=== PATIENT | female | born 1980 | race Caucasian/White ===

== ENCOUNTER → 2017-10-30 | Outpatient (CLI) | payer OTHER ==
[~2017-10-30] MED LIST: NITR-5 PO; ONDA4TAB46 PO; OPTIRAY 320 IV PRN; [UNRECOGNIZED DRUG - OTHER]
--- NOTE | 2017-10-30 12:30 | DIAGNOSTIC IMAGING REPORT ---
ABD/PELVIS IV AND ORAL CONT CLINICAL HISTORY: 37 years-old Female presenting with R10.9 Flank pain, acute, only one kidney. TECHNIQUE: Multidetector CT of the abdomen and pelvis was performed after the administration of oral and intravenous contrast. IV contrast: 70 mL of Optiray 320. A dose lowering technique was used consistent with the principles of ALARA (as low as reasonably achievable). COMPARISON: Plain radiograph from 10/13/2017. CT DOSE (mGy.cm): The estimated cumulative dose is 370.56 mGycm. FINDINGS: Audiologist topogram: Unremarkable. Lung bases: Lungs and pleural spaces clear. Normal heart size. No pericardial or pleural effusion. Liver: Normal morphology. No liver lesion. Patent hepatic vasculature. Biliary: No intrahepatic or extrahepatic biliary ductal dilatation. Normal gallbladder. Pancreas: Normal. Spleen: Normal. Adrenal glands: Normal. Kidneys and ureters: Hypertrophy of the right kidney, likely sequela of the absence of the left kidney, which appears congenital grade no nephrolithiasis. Mild pelvocaliectasis. The right ureter is mildly dilated. No ureteral calculus. Bladder: Normal. Pelvic organs: Both ovaries are present. 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 The uterine horns, last in the region of the lower uterine segment/cervix. The vagina and cervix are incompletely evaluated on CT. Bowel: Normal appendix. No bowel obstruction. Peritoneal cavity: No free fluid or intraperitoneal gas. Lymph nodes: No enlarged lymph nodes in the abdomen or pelvis. Vasculature: Aorta and IVC patent and normal in caliber. Abdominal wall: Normal. Musculoskeletal: Normal. IMPRESSION: 1. No evidence of nephrolithiasis or ureteral calculus. Mild dilatation of the right renal collecting system and right ureter. Hydronephrosis is difficult to exclude, however, there is no obstructing calculus or mass. Although no bladder wall thickening and no periureteral inflammatory changes are evident, correlation with urinalysis to exclude infectious cystitis. Differential considerations for this appearance include chronic reflux. 2. Congenitally absent left kidney. 3. 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 The distinction localizer on better delineation of the endometrial cavity and cervix, which cannot be assessed on the CT scan. Differentiation between these entities could be performed with noncontrast MR of the pelvis tailored to evaluate the uterus with endovaginal gel. Evaluation for a potential vaginal septum is also limited on CT. 4. Both ovaries are present and normal-appearing. Electronically signed by: Arvin Schreiber M.D. 10/30/2017 12:29 PM Dictated Date/Time: 10/30/2017 12:15 PM
== END | disposition home or self-care (01) ==
LOC: C.CTS 11:51
PROVIDERS: ATTEND Physician Assistant Medical
DX: R10.9 Unspecified abdominal pain (principal); Q60.0 Renal agenesis, unilateral

== ENCOUNTER → 2017-12-02 | Outpatient (CLI) | payer OTHER ==
[~2017-12-02] MED LIST changes: -OPTIRAY 320 IV PRN
== END | disposition home or self-care (01) ==
LOC: C.PATHSPEC 17:20
PROVIDERS: ATTEND Urology
DX: Q60.0 Renal agenesis, unilateral (principal)

== ENCOUNTER → 2017-12-08 | Outpatient (CLI) | payer OTHER ==
[2017-12-08 10:44] LABS: ALBUMIN 4.3 gm/dl (3.4-5.0); ALT/SGPT 53 U/L (12-78); AST/SGOT 28 U/L (15-37); BLOOD UREA NITROGEN 15 mg/dl (7-18); CALCIUM 9.3 mg/dl (8.5-10.1); CARBON DIOXIDE 29 mmol/L (21-32); CREATININE 0.87 mg/dl (0.60-1.20); GLUCOSE 78 mg/dl (70-99); POTASSIUM 3.6 mmol/L (3.5-5.1); SODIUM 139 mmol/L (136-145)
[2017-12-08 10:47] LABS: ALKALINE PHOSPHATASE 38 U/L (45-117); TOTAL PROTEIN 8.3 gm/dl (6.4-8.2)
== END | disposition home or self-care (01) ==
LOC: C.LAB 09:35
PROVIDERS: ATTEND Urology
DX: Q60.0 Renal agenesis, unilateral (principal)

== ENCOUNTER → 2017-12-17 | Outpatient (CLI) | payer OTHER ==
[~2017-12-17] MED LIST changes: +CEPH500C2 PO; +CIPR-255 PO; +OXYC-57 PO; +PHEN-775 PO
[2017-12-17 10:11] LABS: BASO % 0.7 %; BASO ABS # 0.04 K/uL (0-0.2); EOS % 2.5 %; EOS ABS # 0.14 K/uL (0-0.5); HEMATOCRIT 41.3 % (37-47); HEMOGLOBIN 14.2 g/dL (12.0-16.0); LYMPH % 32.4 %; LYMPH ABS # 1.79 K/uL (1.2-3.4); MEAN CELL VOLUME 94.3 fL (80-100); MEAN CORPUSCULAR HEMOGLOBIN 32.4 pg (25-34); MEAN CORPUSCULAR HGB CONC 34.4 g/dl (32-36); MEAN PLATELET VOLUME 9.2 fL (7.4-10.4); MONO % 9.6 %; MONO ABS # 0.53 K/uL (0.11-0.59); NEUT % 54.8 %; NEUT ABS # 3.02 K/uL (1.4-6.5); PLATELET COUNT 267 K/uL (130-400); RED CELL DISTRIBUTION WIDTH CV 12.7 % (11.5-14.5); RED CELL DISTRIBUTION WIDTH SD 43.4 fL (36.4-46.3); WHITE BLOOD COUNT 5.52 K/uL (4.8-10.8)
--- NOTE | 2017-12-17 10:16 | DIAGNOSTIC IMAGING REPORT ---
CHEST 2 VIEWS ROUTINE CLINICAL HISTORY: Congenital absence of one kidney. Left sided chest pain. COMPARISON STUDY: Chest radiograph January 26, 2008. FINDINGS: Lung volumes are normal. There is no pneumothorax or pleural effusion. Lungs are clear. Cardiac size is normal. Mediastinal contours are normal. There is no evidence for pulmonary edema. There is slight rightward curvature of the lower thoracic spine. IMPRESSION: No acute cardiopulmonary findings. Electronically signed by: Evelio Hernandez M.D. 12/17/2017 10:14 AM Dictated Date/Time: 12/17/2017 10:13 AM
== END | disposition home or self-care (01) ==
LOC: C.CPL 09:16
PROVIDERS: ATTEND Urology
DX: Q60.0 Renal agenesis, unilateral (principal)

== ENCOUNTER 2017-12-24 09:47 | Day surgery (SDC) | payer OTHER ==
[2017-12-17 14:43] VITALS: Ht 157.5 cm; Wt 54.5 kg
[~2017-12-24] VITALS: Ht 157.5 cm; Wt 54.5 kg
[~2017-12-24 09:47] MED LIST changes: -CEPH500C2 PO; -CIPR-255 PO; +LACTATED RINGER'S 1000ML 1,000 ML IV SCH; +MISSING PHYSICIAN SIGNATURE ON ORDER SCH; -NITR-5 PO; -ONDA4TAB46 PO; -OXYC-57 PO; -PHEN-775 PO; -[UNRECOGNIZED DRUG - OTHER]
[2017-12-24 10:04] VITALS: PULSE 78; TEMP 36.8; O2SAT 97
[2017-12-24] MEDS ORDERED: CIPROFLOXACIN 400MG / 200ML D5W ONE (10:27)
[2017-12-24] MEDS ORDERED: FENTANYL CITRATE INJ 50 MCG/1 ML 2 ML VIAL ONE (10:43)
[2017-12-24] MEDS ORDERED: MIDAZOLAM HCL 1 MG/ML 2ML VIAL ONE (10:43)
[2017-12-24] MEDS ORDERED: Cysto-Conray II 17.2% 250ML BOTTLE ONE (11:05)
--- NOTE | 2017-12-24 13:07 | History & Physical Bridge Note ---
H&P Re-Evaluation Bridge Note: I have examined the patient, reviewed the History & Physical and in the interval since the performance of the History & Physical I have noted the following changes of clinical significance: No changes noted
--- NOTE | 2017-12-24 13:12 | Discharge Instructions ---
Discharge Instructions Date of Service Dec 24, 2017. Admission Reason for Admission: Blood In Urine (Hematuria) Discharge Discharge Diagnosis / Problem: Hematuria, [place] Discharge Goals Goal(s): Decrease discomfort, Improve function Activity Recommendations Activity Limitations: resume your previous activity Lifting Limitations: gradually increase as tolerated Exercise/Sports Limitations: gradually increase as tolerated . Instructions / Follow-Up Instructions / Follow-Up May have blood in urine or flank pain Call if any fevers or chills. Current Hospital Diet Patient's current hospital diet: Discharge Diet Recommended Diet: Regular Diet Procedures Procedures Performed: Cystoscopy, Right URS, Stent Pending Studies Studies pending at discharge: no Medical Emergencies . Who to Call and When: Medical Emergencies: If at any time you feel your situation is an emergency, please call 911 immediately. . Non-Emergent Contact Non-Emergency issues call your: Primary Care Provider, Urologist Call Non-Emergent contact if: you have a fever, temperature is above 101, temperature is above 101.5, your pain is not controlled, your pain is worsening , your pain is unusual for you . . "Provider Documentation" section prepared by Isaac Thompson. .
[2017-12-24] MEDS ORDERED: OXYC-57 PO (13:13)
[2017-12-24] MEDS ORDERED: PHEN-775 PO (13:13)
[2017-12-24] MEDS ORDERED: CIPR-255 PO (13:13)
[2017-12-24] MEDS ORDERED: OXYCODONE/ACETAMINOPHEN 7.5-325 TAB PO PRN (13:15)
[2017-12-24] MEDS ORDERED: ATROPINE SULFATE 0.1 MG/ML 5ML SYR IV PRN (13:15)
[2017-12-24] MEDS ORDERED: PROMETHAZINE HCL INJ 6.25 MG in SODIUM CHLORIDE 0.9% 50ML 50 ML IV PRN (13:15)
[2017-12-24] MEDS ORDERED: ONDANSETRON INJ 2 MG/ML 2 ML VIAL IV PRN (13:15)
[2017-12-24] MEDS ORDERED: EpHEDrine SULFATE INJ 50 MG/ML AMP IV PRN (13:15)
[2017-12-24] MEDS ORDERED: FENTANYL CITRATE INJ 50 MCG/1 ML 2 ML VIAL IV PRN (13:15)
[2017-12-24] MEDS ORDERED: DEXAMETHASONE SOD INJ 4 MG/ML VIAL ONE (13:33)
[2017-12-24] MEDS ORDERED: ONDANSETRON INJ 2 MG/ML 2 ML VIAL ONE (13:33)
[2017-12-24] MEDS ORDERED: PROPOFOL IV EMULSION 10 MG/ML 20 ML VIAL IV ONE (13:33)
[2017-12-24] MEDS ORDERED: CEPH500C2 PO (13:45)
[2017-12-24] MEDS ORDERED: EpHEDrine SULFATE INJ 50 MG/ML AMP ONE (13:45)
--- NOTE | 2017-12-24 13:45 | [facility] Operative Report ---
Operative Report Operative Date Dec 24, 2017. Pre-Operative Diagnosis Hematuria, Hydronephrosis Right, SOlitary kidney Post-Operative Diagnosis Same Procedure(s) Performed Cystoscopy, Right Ureteroscopy, Retrograde pyelogram, Stent Surgeon Jay Estimated Blood Loss Minimal Findings Tightness at UO. Dilated by scope and stent Specimens None Drains 6 Fr Multilength Anesthesia Type General Complication(s) none Disposition Recovery Room / PACU Indications Imaging found abnormality of right ureter. Risks and benefits discussed. Description of Procedure Patient was consented and brought back to the operating room. Patient was placed under anesthesia in the supine position and moved to the dorsal lithotomy position. Patient was prepped and draped in the regular sterile fashion. A time out was completed. A 30degree Cystoscope was placed into the bladder and the entire bladder was examined. The UO's were identified. The Right was cannulized with a catheter and a retrograde pyelogram was completed. A wire was then placed, a second wire was placed, and a flexible scope was placed into the ureter and renal pelvis. The entire pelvis and ureter were examined. No masses lesions or other areas of concerns were found. The scope was slowly removed visualizing the entire ureter. With the wire in place, a 6 Fr Double J stent was placed. It was confirmed with fluoroscopy. With the stent in place, the bladder was emptied. The scope was removed. The patient was cleaned, aroused from anesthesia, and transferred to the pacu in stable condition having tolerated the procedure well with no complications. I was present and participated in all aspects of the procedure. The patient will be monitored in the PACU until transferred. I attest to the content of the Intraoperative Record and any orders documented therein. Any exceptions are noted below.
[2017-12-24] MEDS ORDERED: NALOXONE HCL 0.4 MG/1 ML VIAL/CARP ONE (13:50)
--- NOTE | 2017-12-24 13:55 | DIAGNOSTIC IMAGING REPORT ---
RETROGRADE INCLUDES KUB CLINICAL HISTORY: RT CYSTO/RETRO/STENT COMPARISON STUDY: CT of the abdomen and pelvis October 30, 2017. Fluoroscopy time: 1 minute and 21 seconds. FINDINGS: 5 fluoroscopic images from right retrograde exam demonstrate cannulation of the right ureter with placement of a right ureteral stent which is appropriately positioned. There may be mild right collecting system dilatation. IMPRESSION: Fluoroscopic images from right retrograde exam with ureteral stent insertion. Electronically signed by: Evelio Hernandez M.D. 12/24/2017 1:54 PM Dictated Date/Time: 12/24/2017 1:51 PM
--- NOTE | 2017-12-24 14:36 | Anesthesiology Progress Note ---
Anesthesia Post Op Note Date & Time Dec 24, 2017 at 14:36 Vital Signs Pain Intensity: 3 Vital Signs Past 12 Hours Date Time Temp Pulse Resp B/P (MAP) Pulse Ox O2 Delivery O2 Flow Rate FiO2 12/24/17 14:20 76 20 111/68 100 Room Air 12/24/17 14:10 82 19 123/69 100 Room Air 12/24/17 14:00 36.2 116 16 114/70 100 Room Air 12/24/17 10:04 36.8 78 16 97 Room Air Notes Mental Status: alert / awake / arousable, participated in evaluation Pt Amnestic to Procedure: Yes Nausea / Vomiting: adequately controlled Pain: adequately controlled Airway Patency, RR, SpO2: stable & adequate BP & HR: stable & adequate Hydration State: stable & adequate Anesthetic Complications: no major complications apparent
[2017-12-24 14:40] VITALS: BP 115/53; PULSE 82; TEMP 36.7; O2SAT 98
[2017-12-24 15:10] VITALS: BP 116/67; PULSE 70; O2SAT 99
[2017-12-24 15:40] VITALS: BP 114/70; PULSE 83; TEMP 36.9; O2SAT 98
[2017-12-24] MEDS ORDERED: PHENAZOPYRIDINE HCL 200 MG TAB PO ONE (15:59)
[2017-12-24] MEDS ORDERED: NURSING VERBAL MED ORDER ONE ×2 (16:15→17:15)
[2017-12-24] MEDS ORDERED: OXYBUTYNIN CHLORIDE 5 MG TAB PO ONE (16:30)
[2017-12-24 17:10] VITALS: BP 108/82; PULSE 85; O2SAT 98
[2017-12-24] MEDS ORDERED: BELLADONNA/OPIUM SUPP 60 MG SUPP PR ONE (17:30)
== END 2017-12-24 17:55 | disposition home or self-care (01) ==
LOC: C.ACU 09:47
PROVIDERS: ATTEND Urology
DX: R31.29 Other microscopic hematuria (principal); N13.30 Unspecified hydronephrosis; Q60.0 Renal agenesis, unilateral; D68.51 Activated protein C resistance; N18.9 Chronic kidney disease, unspecified; Z88.0 Allergy status to penicillin; Z88.2 Allergy status to sulfonamides; Z98.818 Other dental procedure status; Z90.89 Acquired absence of other organs; Z82.49 Family history of ischemic heart disease and other diseases of the circulatory system; Z80.8 Family history of malignant neoplasm of other organs or systems; Z80.3 Family history of malignant neoplasm of breast

== ENCOUNTER → 2018-01-01 | Outpatient (CLI) | payer OTHER ==
[~2018-01-01] MED LIST changes: +CEPH500C2 PO; -LACTATED RINGER'S 1000ML 1,000 ML IV SCH; -MISSING PHYSICIAN SIGNATURE ON ORDER SCH; +OXYC-57 PO; +PHEN-775 PO
--- NOTE | 2018-01-01 14:29 | DIAGNOSTIC IMAGING REPORT ---
(RENAL)RETROPERITON COMP CLINICAL HISTORY: 37 years-old Female presenting with R10.9 acute flank pain. TECHNIQUE: Real-time grayscale and limited color Doppler ultrasound imaging of the kidneys and bladder was performed. COMPARISON: CT from 10/30/2017. FINDINGS: Right kidney: Normal echogenicity of renal parenchyma. Right kidney measures 12.8 cm. Mild pelviectasis and mild dilatation of the proximal right ureter similar to the appearance on prior CT. No convincing evidence of calculus or mass. Left kidney: Congenitally absent. Bladder: Normal. Left ureteral jet not present. Other: None. IMPRESSION: 1. No convincing evidence of hydronephrosis. No sonographic evidence of renal calculi. 2. Congenitally absent left kidney. Electronically signed by: Arvin Schreiber M.D. 01/01/2018 2:27 PM Dictated Date/Time: 01/01/2018 2:25 PM
== END | disposition home or self-care (01) ==
LOC: C.ULTRBC 13:23
PROVIDERS: ATTEND Urology
DX: R10.9 Unspecified abdominal pain (principal)

== ENCOUNTER → 2018-01-04 | Outpatient (CLI) | payer OTHER | END | disposition home or self-care (01) | LOC: C.LABBC 08:58 | PROVIDERS: ATTEND Urology | DX: R31.29 Other microscopic hematuria (principal); R30.0 Dysuria ==